=== PATIENT | female | born 1975 | race Caucasian/White ===

== ENCOUNTER 2021-03-08 19:36 | Emergency (ER) | payer BC ==
[2021-03-08] MEDS ORDERED: Sodium Chloride 0.9% 10 ML Syringe FLUSH PRN (20:22)
[2021-03-08] MEDS ORDERED: Sodium Chloride 0.9% 1,000 ML IV ONE (20:22)
[2021-03-08] MEDS ORDERED: Ketorolac 30 MG/ML SDV IVPUSH ONE (20:22)
[2021-03-08] MEDS ORDERED: Sulfamethoxazole/Trimethoprim 800-160 MG Tab PO ONE (21:06)
--- NOTE | 2021-03-08 21:06 | EDM.PDOC ---
ED HPI GENERAL MEDICAL PROBLEM - General Chief Complaint: Genitourinary Problem Stated Complaint: FEVER,FLANK PAIN Time Seen by Provider: 03/08/21 19:45 Source of Information: Reports: Patient History Limitations: Reports: No Limitations - History of Present Illness INITIAL COMMENTS - FREE TEXT/NARRATIVE: Patient is having some dysuria with increased urinary frequency first occurring 1 week ago but resolved that same day and then reoccurring last night getting worse today. She is complaining having some pain in her right CVA area today she is not nauseous has had no vomiting or diarrhea. Patient did note small amount of blood in her urine yesterday. She has had bladder infections before previously treated with Augmentin. She has no known drug allergies to antibiotics. She denies any vaginal discharge or any bloody or tarry stools. Duration: Day(s): (Started yesterday evening.), Getting Worse Location: Reports: Abdomen Quality: Reports: Ache Severity: Mild Improves with: Reports: None Worsens with: Reports: Other (Urination) Associated Symptoms: Reports: No Other Symptoms Right Flank Pain Score (Numeric/FACES): 6 - Related Data Allergies Allergy/AdvReac Type Severity Reaction Status Date / Time lisinopril Allergy Severe Cough Verified 03/08/21 20:09 Home Meds: Home Meds Fluconazole [Diflucan] 150 mg PO ONETIME #1 tablet 03/08/21 [Rx] Losartan [Cozaar] 25 mg PO DAILY 03/08/21 [History] Sulfamethoxazole/Trimethoprim [Bactrim Ds Tablet] 1 each PO BID #14 tablet 03/08/21 [Rx] hydroCHLOROthiazide [Hydrochlorothiazide] 12.5 mg PO DAILY 03/08/21 [History] Past Medical History Cardiovascular History: Reports: Hypertension Hematologic History: Reports: Anemia - Infectious Disease History Infectious Disease History: Reports: Chicken Pox Social & Family History - Family History Family Medical History: No Pertinent Family History - Tobacco Use Tobacco Use Status *Q: Never Tobacco User Second Hand Smoke Exposure: No - Recreational Drug Use Recreational Drug Use: No ED ROS GENERAL - Review of Systems Review Of Systems: Comprehensive ROS is negative, except as noted in HPI. ED EXAM, RENAL/ - Physical Exam Exam: See Below Exam Limited By: No Limitations General Appearance: Alert, No Apparent Distress Head: Normocephalic Neck: Normal Inspection Respiratory/Chest: No Respiratory Distress Back Exam: Normal Inspection. No: CVA Tenderness (L), CVA Tenderness (R), Decreased Range of Motion Extremities: Normal Inspection Neurological: Alert, Oriented Psychiatric: Normal Affect Skin Exam: Warm, Dry, Normal Color Lymphatic: No Adenopathy Course - Vital Signs Text/Narrative:: Patient's urine has returned and is highly infected. I am starting her on Bactrim for a 10-day course. I will also give her some Diflucan since she gets yeast infections with antibiotics. She is instructed to return to ER if having fever chills, vomiting or feeling worse. She is to follow-up with her PCP when she finishes her antibiotic sooner if not improving. She may take ibuprofen or Tylenol as needed. Last Recorded V/S: Last Vital Signs Temp 99.8 F 03/08/21 20:04 Pulse 105 H 03/08/21 20:04 Resp 16 03/08/21 20:04 BP 172/101 H 03/08/21 20:04 Pulse Ox 97 03/08/21 20:04 - Orders/Labs/Meds Orders: Active Orders 24 hr Category Date Time Status Peripheral IV Care [RC] . DIRECTED Care 03/08/21 20:22 Active C-REACTIVE PROTEIN [CHEM] Stat Lab 03/08/21 20:44 Received CBC WITH MANUAL DIFF [HEME] Stat Lab 03/08/21 20:44 Results COMPREHENSIVE METABOLIC PN,CMP [CHEM] Stat Lab 03/08/21 20:44 Received CULTURE URINE [MREF] Stat Lab 03/08/21 20:00 Received Sodium Chloride 0.9% [Normal Saline] 1,000 ml Med 03/08/21 20:22 Active IV ONETIME Sodium Chloride 0.9% [Saline Flush] Med 03/08/21 20:22 Active 10 ml FLUSH ASDIRECTED PRN Peripheral IV Insertion Adult [OM.PC] Routine Oth 03/08/21 20:21 Ordered Medication Orders Sodium Chloride (Normal Saline) 1,000 mls @ 1,000 mls/hr IV ONETIME ONE Stop: 03/08/21 21:21 Last Admin: 03/08/21 20:47 Dose: 1,000 mls/hr Documented by: ILYA Sodium Chloride (Sodium Chloride 0.9% 10 Ml Syringe) 10 ml FLUSH ASDIRECTED PRN PRN Reason: Keep Vein Open Last Admin: 03/08/21 20:47 Dose: 10 ml Documented by: ILYA Labs: Laboratory Tests 03/08/21 03/08/21 03/08/21 Range/Units 19:35 20:00 20:44 WBC 14.25 H (3.98-10.04) K/mm3 RBC 4.34 (3.98-5.22) M/mm3 Hgb 13.9 (11.2-15.7) gm/dl Hct 41.1 (34.1-44.9) % MCV 94.7 (79.4-94.8) fl MCH 32.0 (25.6-32.2) pg MCHC 33.8 (32.2-35.5) g/dl RDW Std Deviation 43.1 (36.4-46.3) fL Plt Count 268 (182-369) K/mm3 MPV 10.5 (9.4-12.3) fl Urine Color Yellow (Yellow) Urine Appearance Turbid H (Clear) Urine pH 6.0 (5.0-8.0) Ur Specific [place] 1.025 (1.005-1.030) Urine Protein 3+ H (Negative) Urine Glucose (UA) Negative (Negative) Urine Ketones Negative (Negative) Urine Occult Blood 3+ H (Negative) Urine Nitrite Positive H (Negative) Urine Bilirubin Negative (Negative) Urine Urobilinogen 0.2 (0.2-1.0) Ur Leukocyte Esterase 3+ H (Negative) Urine RBC 30-40 H (0-5) /hpf Urine WBC Too numerous to cnt H (0-5) /hpf Ur Squamous Epith Cells 0-5 (0-5) /hpf Urine Bacteria Moderate H (FEW) /hpf Urine Mucus Few (FEW) /hpf Urine HCG, Qual Negative (NEGATIVE) Meds: Medications Generic Name Dose Route Start Last Admin Trade Name Freq PRN Reason Stop Dose Admin Sodium Chloride 1,000 mls @ 1,000 mls/hr 03/08/21 20:22 03/08/21 20:47 Normal Saline IV 03/08/21 21:21 1,000 mls/hr ONETIME ONE Administration Sodium Chloride 10 ml 03/08/21 20:22 03/08/21 20:47 Sodium Chloride 0.9% 10 Ml Syringe FLUSH 10 ml ASDIRECTED PRN Administration Keep Vein Open Discontinued Medications Generic Name Dose Route Start Last Admin Trade Name Freq PRN Reason Stop Dose Admin Ketorolac Tromethamine 30 mg 03/08/21 20:22 03/08/21 20:47 Ketorolac 30 Mg/Ml Sdv IVPUSH 03/08/21 20:23 30 mg ONETIME ONE Administration Departure - Departure Time of Disposition: 21:14 Disposition: Home, Self-Care 01 Condition: Good Clinical Impression: UTI, Urinary tract infectious disease - Discharge Information Instructions: Urinary Tract Infection, Adult Referrals: Any Chowdhury MD [Primary Care Provider] - Additional Instructions: Turn to emergency department if symptoms are worse. Follow-up with PCP when you finished her antibiotic or if symptoms not improving. Sepsis Event Note (ED) - Evaluation Sepsis Screening Result: No Definite Risk - Focused Exam Vital Signs: Vital Signs Temp Pulse Resp BP Pulse Ox 03/08/21 20:04 99.8 F 105 H 16 172/101 H 97 - My Orders Last 24 Hours: My Active Orders 03/08/21 20:00 CULTURE URINE [MREF] Stat 03/08/21 20:21 Peripheral IV Insertion Adult [OM.PC] Routine 03/08/21 20:22 Peripheral IV Care [RC] . DIRECTED Sodium Chloride 0.9% [Normal Saline] 1,000 ml IV ONETIME Sodium Chloride 0.9% [Saline Flush] 10 ml FLUSH ASDIRECTED PRN 03/08/21 20:44 C-REACTIVE PROTEIN [CHEM] Stat CBC WITH MANUAL DIFF [HEME] Stat COMPREHENSIVE METABOLIC PN,CMP [CHEM] Stat - Assessment/Plan Last 24 Hours: My Active Orders 03/08/21 20:00 CULTURE URINE [MREF] Stat 03/08/21 20:21 Peripheral IV Insertion Adult [OM.PC] Routine 03/08/21 20:22 Peripheral IV Care [RC] . DIRECTED Sodium Chloride 0.9% [Normal Saline] 1,000 ml IV ONETIME Sodium Chloride 0.9% [Saline Flush] 10 ml FLUSH ASDIRECTED PRN 03/08/21 20:44 C-REACTIVE PROTEIN [CHEM] Stat CBC WITH MANUAL DIFF [HEME] Stat COMPREHENSIVE METABOLIC PN,CMP [CHEM] Stat
== END 2021-03-08 22:08 | disposition home or self-care (01) ==
LOC: JD.ED 19:36
DX: N39.0 Urinary tract infection, site not specified (principal); I10 Essential (primary) hypertension; Z79.899 Other long term (current) drug therapy; Z88.8 Allergy status to other drugs, medicaments and biological substances
CPT/HCPCS: 36415; 80053; 81001; 81025; 85007; 85027; 86140; 87086; 87088; 87186; 96374; 99284; A9270; J1885; J7030